=== PATIENT | male | born 1950 | race Caucasian/White ===

== ENCOUNTER 2016-12-10 17:38 | Inpatient (IN) | payer MEDICARE, OTHER ==
[2016-12-10] VITALS (8 sets, daily range): BP systolic 107–133; BP diastolic 59–99; PULSE 68–160; RESP 15–27; O2SAT 92–98
[~2016-12-10] VITALS: Ht 175.3 cm; Wt 93.8 kg
[~2016-12-10 17:38] MED LIST: LOSA25TA21 PO; METO-272 PO; [UNRECOGNIZED DRUG - CODE] SQ
[2016-12-10 18:10] LABS: BASOPHILS % (AUTO) 0.2 % (0-3); EOSINOPHILS % (AUTO) 1.1 % (0-5); Mean Corpuscular Hemoglobin 28.6 pg (27.0-35.0); Mean Corpuscular Volume 88.6 fL (81-100); NEUTROPHILS % (AUTO) 65.2 % (40-74); Platelet Count 287 bil/L (150-400)
--- NOTE | 2016-12-10 18:12 | DRSVH ---
PROCEDURE: X-RAY CHEST ONE VIEW, PORTABLE ([id number]) INDICATIONS: dysrhythmia TECHNIQUE: One view of the chest was acquired. COMPARISON: [facility], CR, XR CHEST 1VW (PORTABLE), 05/06/2016, 15:47. FINDINGS: Surgical changes and devices: Left chest wall portacatheter, tip of which is in the right atrium. Lungs and pleura: No pleural effusions or pneumothorax. No change in right basilar nodular density. Lungs are otherwise clear. Mediastinum: Mediastinal contours appear normal. Heart size is normal. Bones and chest wall: No suspicious bony lesions. Overlying soft tissues appear unremarkable. IMPRESSION: 1. No change in right basilar nodular density. 2. No acute process. Dictated by: Lakesha Jain M.D. on 12/10/2016 at 18:09 Approved by: Lakesha Jain M.D. on 12/10/2016 at 18:10
--- NOTE | 2016-12-10 18:16 | ED.REPORT ---
HPI-Chest Pain 40 and Over Date of Service Dec 10, 2016 ED Provider: Dr. He Campos D.O. A 66 year old male with a medical history including metastatic squamous cell carcinoma of the head and neck, PTSD, PE, DVT, and atrial fibrillation s/p cardioversion on Xarelto presents to the ED accompanied by his with tachycardia (160bpm) onset today. Associated symptoms include dizziness, weakness, and lightheadedness. The patient denies fever, vomiting, diarrhea, loss of appetite, or other symptoms. He has had similar symptoms in the past associated with atrial fibrillation and bilateral PE. The patient spoke with his oncologist today who referred him to the ED. Nursing Notes Stated Complaint: POSSIBLE AFIB- SENT BY SUAREZ Chief Complaint: Dysrhythmia/Cardiac Nursing Notes Reviewed: Yes Allergies: Coded Allergies: No Known Allergies (Unverified , 05/15/16) Scheduled Gabapentin (Gabapentin) 300 Mg Capsule 300 MG PO TID Losartan Potassium (Losartan Potassium) 25 Mg Tablet 12.5 MG PO HS Metoprolol Succinate ER (Metoprolol Succinate ER) 50 Mg Tab.er.24h 50 MG PO DAILY Pembrolizumab (Keytruda) 100 Mg/4 Ml (25 Mg/Ml) Vial 200 MG IV [id number] Rivaroxaban (Xarelto) 20 Mg Tablet 20 MG PO QPM at 1800 General Time Seen by MD: 18:16 Chief Complaint Other (Tachycardia) Hx Obtained From: Patient Arrived By: Walk-in Sudden in Onset?: Yes Onset Occurred: Onset unknown (Today) Symptom Duration: Since onset Severity: Current: No pain currently Severity: Maximum: No pain Associated with: Reports: Lightheaded, Weakness, Denies: Fever, Vomiting Pertinent Negative: Relieved by nothing Context Related History: Reports: Arrhythmia, Pulmonary embolism Similar Sx Previous: Yes Past Medical History Past Medical History Pressure ulcer Anxiety PTSD Depression Metastatic squamous cell carcinoma of the head and neck PE DVT Atrial fibrillation s/p cardioversion Hx Left ankle skin cancer Varicose vein Agent [place] exposure Hemorrhoids Past Surgical History Hemorrhoidectomy Varicose vein stripping Tongue BX's EXC skin cancer Lung biopsy Smoking History Light Tobacco Smoker Social History Alcohol Use: Denies alcohol use Drug Use: Denies drug use Ambulatory Status Independent Review of Systems Review of Systems Note: + Tachycardia (160bpm) - Loss of appetite Constitutional: Denies: Fever Respiratory: Denies: Non-productive cough, Shortness of breath GI: Denies: Diarrhea, Vomiting Neurologic: Reports: Dizziness, Lightheaded, Weakness Complete sys rev & neg: except as marked. Physical Exam Physical Exam Notes: Initial Vital Signs Vital Signs (First) Date Time Temp Pulse Resp B/P Pulse Ox O2 Delivery O2 Flow Rate FiO2 12/10/16 17:41 36.3 160 16 110/77 96 12/10/16 18:41 Nasal Cannula 2 Initial VS: Reviewed Head / Eyes: Atraumatic, Normocephalic ENT: Conjunctiva normal, No scleral icterus Neck: Supple, Full range of motion Skin: Warm, Dry, No cyanosis Neurologic: Alert, Oriented, Nonfocal Psychiatric: Mood/affect normal, Behavior normal, Normal thought content General/Constitutional: Awake, Alert, No acute distress Respiratory / Chest: Breath sounds NL, Breath sounds = bilat, No respiratory distress Cardiovascular: Regular rhythm Heart Rate / Rhythm: Positive: Tachycardia Thready pulses Interpretation & Diagnostics Lab Results Interpretation Result Diagram: 12/10/16 1800 12/10/16 1800 Test 12/10/16 18:00 12/10/16 19:37 White Blood Count 6.1th/mm3 (3.8-10.1) Red Blood Count 4.65mil/mm3 (4.40-5.80) Hemoglobin 13.3g/dL (13.8-17.2) Hematocrit 41.2% (41.0-50.0) Mean Corpuscular Volume 88.6fL (81-100) Mean Corpuscular Hemoglobin 28.6pg (27.0-35.0) Mean Corpuscular Hemoglobin Concent 32.3% (32.0-37.0) Red Cell Distribution Width 12.8% (12.3-15.4) Platelet Count 287bil/L (150-400) Neutrophils (%) (Auto) 65.2% (40-74) Lymphocytes (%) (Auto) 22.3% (14-46) Monocytes (%) (Auto) 11.0% (4-12) Eosinophils (%) (Auto) 1.1% (0-5) Basophils (%) (Auto) 0.2% (0-3) Prothrombin Time 10.7sec (8.1-12.5) Prothromb Time International Ratio 1.00ratio Activated Partial Thromboplast Time 31.3sec (22.8-33.0) D-Dimer 0.5mg/L (<0.50) Sodium Level 137mEq/L (134-144) Potassium Level 4.1mEq/L (3.5-5.2) Chloride Level 100mEq/L (97-108) Carbon Dioxide Level 22mmol/L (18-29) Blood Urea Nitrogen 19mg/dL (8-27) Creatinine 0.89mg/dL (0.76-1.27) Estimat Glomerular Filtration Rate 91mL/min (>59) Glucose Level 193mg/dL (60-99) Calcium Level 9.3mg/dL (8.5-10.1) Magnesium Level 2.1mg/dL (1.6-2.6) Total Bilirubin 0.4mg/dL (0.0-1.2) Aspartate Amino Transf (AST/SGOT) 17U/L (0-50) Alanine Aminotransferase (ALT/SGPT) 20U/L (0-44) Alkaline Phosphatase 108U/L (25-160) Troponin T < 0.010ug/L (0.0-0.011) Total Protein 6.8g/dL (6.4-8.4) Albumin 3.8g/dL (3.4-5.0) Hold [place] Top Tube Received (Received) Hold Urine Received (Received) ECG Interpretation ECG Interpretation: Atrial fibrillation/flutter rate 160 Nonspecific IVCD Time: 17:54 Interpreted by: ED physician X-Ray Chest Interpretation Chest Xray Interpretation: IMPRESSION: 1. No change in right basilar nodular density. 2. No acute process. Dictated by: Lakesha Jain M.D. on 12/10/2016 at 18:09 View: Portable, 1 view Interpretation / Wet Read by: Interpret - Radiologist CT Chest Interpretation IMPRESSION: 1. No pulmonary embolus. 2. New left hilar and AP window adenopathy, indicating metastatic disease, causing mild extrinsic narrowing of the left main pulmonary artery. 3. No change in skeletal metastases. 4. No change in small hepatic hypodensities consistent with metastatic disease. 5. No change in right basilar rounded atelectasis. 6. Increased left apical pulmonary nodule, consistent with metastatic disease. Dictated by: Lakesha Jain M.D. on 12/10/2016 at 19:53 Study type: CT pulm angiogram Interpretation / Wet Read by: Interpret - Radiologist Re-Eval/Medical Decision Med Decision/Clinical Course 66-year-old male presents with a rapid pulse. Evidently felt dizzy and lightheaded since this morning. His oncologist referred him in because last time he looked like this he had r ulmonary emboli leading atrial flutter flutter. He was found to be in atrial fibrillation rapid rate at 160. His blood pressure was a bit soft. He was treated IV fluids and eventually Cardizem drip. I did not sedate cardiovert him to the fact that he just a large meal. He tolerated Cardizem well. Pulmonary emboli was ruled out. Labs look good. He will be admitted to PCU for continue monitoring. Source of Hx: Old records Time of Eval: 19:37 Patient Status: Condition improved Re-Evaluation/Progress Note: The patient's heart rate has reduced to 97bpm after drip. He is still in atrial flutter and his systolic BP is 110. Time of Eval: 20:17 Patient Status: Condition improved Re-Evaluation/Progress Note: Discussed with patient and his x-ray, CT, and lab results, diagnosis, and plan for admit. Patient agrees with plan for care and all questions were addressed. Consultation : Referral / Consult Name: Julio Cesar Gómez MD Consulted With: Hospitalist Call Returned at: 20:11 Adult Secondary Education Instructor: Agrees with eval, Agrees with plan, Accepts admit Counseled Regarding: Diagnosis, Lab results, Need for admission Discharge & Departure Primary Impression: Atrial fibrillation with RVR Disposition: ADMITTED TO HOSPITAL Discharge Condition All VS Reviewed: Yes Condition: Improved Referrals: No Valenzuela MD (PCP) Aas Shah MD Crit Care Except Billable Proc Time Spent: 30-74 minutes Services Performed: Patient management by me, Time spent at bedside, Reviewing test results, Reviewing imaging, Discussing patient care, Documentation in record, Time with fam/surrogate Scribe Attestation Portions of this note were transcribed by Toña Adrian. I, Dr. Campos, personally performed the history, physical exam, and medical decision-making; I reviewed and confirmed the accuracy of the information in the transcribed note. Signed by: Jeremy Renee, 12/10/2016, 22:30 copies to: No Valenzuela MD; Asa Shah MD, Todd P DO Dec 10, 2016 18:16 TOÑA ADRIAN Dec 10, 2016 18:25
[2016-12-10] MEDS ORDERED: GABA-502 PO (18:18)
[2016-12-10] MEDS ORDERED: RIVA20TA PO (18:18)
[2016-12-10] MEDS ORDERED: 0.9% Sodium Chloride 1,000 ML IV ONE (18:20)
[2016-12-10] MEDS ORDERED: Diltiazem 5 mg/mL 5 mL Inj IVPUSH PRN (18:25)
[2016-12-10 18:39] LABS: D-DIMER 0.5 mg/L (<0.50)
[2016-12-10 18:42] LABS: Magnesium 2.1 mg/dL (1.6-2.6)
[2016-12-10 18:44] LABS: TROPONIN T < 0.010 ug/L (0.0-0.011)
[2016-12-10] MEDS ORDERED: Diltiazem 5 mg/mL 5 mL Inj IVPUSH ONE (18:55)
[2016-12-10] MEDS ORDERED: PEMB100V IV (19:52)
[2016-12-10] MEDS: Diltiazem Inj 125 MG in 0.9% Sodium Chloride 100 ML, Pharmacy To Mix 1 EA IV SCH (19:53)
--- NOTE | 2016-12-10 20:00 | DRSVH ---
PROCEDURE: CT ANGIO CHEST PULMONARY EMBOLISM ([id number]) INDICATIONS: tachycardia, cancer, hx of PE TECHNIQUE: After the administration of intravenous contrast, 2 mm thick sections acquired from the pulmonary api gail to the posterior costophrenic angles. 3-dimensional maximum intensity projection (MIP) coronal a nd sagittal reformats were then acquired through the thorax. For radiation dose reduction, the follo wing was used: automated exposure control, adjustment of mA and/or kV according to patient size. COMPARISON: [facility], CT, CT NECK CHEST ABD PELVIS W CON, 10/21/2016, 11:46. FINDINGS: Image quality: Excellent. Pulmonary arteries: There is mild extrinsic narrowing of the left main pulmonary artery secondary to left hilar adenopathy. No filling defects are seen within the pulmonary arteries to indicate pulmonar y emboli. Lungs and pleura: Increased, 10 mm diameter left apical nodule. No change in rounded atelectasis at t he right anterolateral and posterior lung base. No pleural effusions or pneumothorax. Central and pe ripheral airways are patent. Mediastinum: Heart size is normal, without pericardial effusion. There is new, 27 mm short axis AP w indow adenopathy. There is new, 17 mm short axis left hilar adenopathy. There is mild associated extr insic narrowing of the left main pulmonary artery secondary to left hilar adenopathy. Calcified right hilar lymph nodes are present. Thoracic aorta is normal in caliber and enhancement. Esophagus is no rmal in caliber, without hiatal hernia. Bones and chest wall: No change in scattered sclerotic lesions within the mid thoracic spine. Ribs a nd thoracic spine appear intact throughout. Thyroid gland is within normal limits. No axillary or s upraclavicular adenopathy. Abdomen: Visualized portions of the upper abdomen demonstrate no change in small hepatic hypodensiti es. IMPRESSION: 1. No pulmonary embolus. 2. New left hilar and AP window adenopathy, indicating metastatic disease, causing mild extrinsic courtney rowing of the left main pulmonary artery. 3. No change in skeletal metastases. 4. No change in small hepatic hypodensities consistent with metastatic disease. 5. No change in right basilar rounded atelectasis. 6. Increased left apical pulmonary nodule, consistent with metastatic disease. Dictated by: Lakesha Jain M.D. on 12/10/2016 at 19:53 Approved by: Lakesha Jain M.D. on 12/10/2016 at 19:59
[2016-12-10] MEDS ORDERED: Ondansetron 2 mg/mL 2 mL Inj IVPUSH PRN (20:15)
[2016-12-10] MEDS ORDERED: Alum-Mag Hydrox-Simeth 30 mL Suspension PO PRN (20:15)
[2016-12-10] MEDS ORDERED: Polyethylene Glycol (PEG) 17 Gm Powder PO PRN (20:15)
--- NOTE | 2016-12-10 21:22 | PCM.HPMED ---
Subjective Date of Service Dec 10, 2016 Primary Provider: Admitting Physician: Julio Cesar Gómez MD Primary Care Physician: No Valenzuela MD Attending Physician: Julio Cesar Gómez MD Chief Complaint: Weakness Tachycardia History of Present Illness: 66-year-old gentleman with metastatic squamous cell carcinoma previous history of bilateral pulmonary embolism atrial flutter/fibrillation, presented to [facility] emergency department 12/10/2016 on the instructions of Dr. Pemberton, oncologist. Patient reports having profound weakness today and broke into a cold sweat this morning and was not able to eat anything this afternoon. States he was lightheaded with standing and his heart rate had gone from 75 to 152. Prehospital he denies any chest pain, lower extremity edema, orthopnea, stated he has a slight amount of shortness of breath. Patient recently had a viral infection, and was placed on gabapentin 300 mg 3 times a day by Dr. Pemberton for cancer pain. He is currently on Xarelto 20mg Qpm. Dr. Kim asked the patient to speak with his oncologist, who subsequently advised him to report to the emergency department. In May 2016 he was found to be in atrial fib/atrial flutter with a diagnosis of bilateral pulmonary emboli. At that time he was hospitalized and underwent electrocardioversion, and since then has been on blood thinners. In the emergency department he is found to have a heart rate in the 160s, chest angiography in the emergency department was negative for pulmonary embolism, but was positive for new adenopathy in the left hilar and AP window. No change in his skeletal metastatic disease, increased left apical pulmonary nodule consistent with metastatic disease. EKG showed atrial fibrillation/flutter with a rate of 160, "nonspecific IVCD" CBC was essentially benign except for 13.3 hemoglobin CMP is only positive for elevated glucose at 193, troponin was negative, magnesium was 2.1. Coag studies were normal, INR 1.0 d-dimer 0.5 He was placed on diltiazem drip where his heart rate improved, and blood pressure remained stable in the 110. States he is feeling well, is no longer lightheaded, dizzy, or weak, no chest pain, no shortness of breath, no abdominal pain, denies any melena or hematochezia, he is unchanged weakness in his right arm which is not new and has been evaluated and found to be local compression of nerve root by metastatic disease. No dysuria, urgency, or difficulty urinating, no constipation, no diarrhea, no rashes, no bruising. Review of Systems: Comprehensive ROS negative unless mentioned in history of present illness Allergies Coded Allergies: No Known Allergies (Unverified , 05/15/16) Home Medications Gabapentin (Gabapentin) 300 Mg Capsule 300 MG PO TID Losartan Potassium (Losartan Potassium) 25 Mg Tablet 12.5 MG PO HS Metoprolol Succinate ER (Metoprolol Succinate ER) 50 Mg Tab.er.24h 50 MG PO DAILY Pembrolizumab (Keytruda) 100 Mg/4 Ml (25 Mg/Ml) Vial 200 MG IV u0lbher Rivaroxaban (Xarelto) 20 Mg Tablet 20 MG PO QPM PMH Pressure ulcer Anxiety PTSD Depression Metastatic squamous cell carcinoma of the head and neck (HPV) PE DVT Atrial fibrillation s/p cardioversion Hx Left ankle skin cancer Varicose vein Agent [place] exposure Hemorrhoids Surgical History Hemorrhoidectomy Varicose vein stripping Tongue BX's EXC skin cancer Lung biopsy Port-A-Cath placement Family History Mother had several cerebrovascular accidents, dementia, lived to be 91 Father several CVA accidents, skin cancer, lived a day short of 90 years old. Social History Occupation: retired Hx Alcohol Use: No Hx Substance Use: No Smoking Status: Light Tobacco Smoker (reportedly one cigarette a day down from 2-1/2 packs a day) Living Arrangement: with Family Exam Vital Signs Vital Sign - Last Date Time Temp Pulse Resp B/P Pulse Ox O2 Delivery O2 Flow Rate FiO2 12/10/16 20:27 105 18 116/65 95 Room Air 12/10/16 19:52 36.8 12/10/16 19:00 2 Exam General: Laying in bed, no apparent distress. Alert and oriented HEENT: Normocephalic, atraumatic, EOMI grossly, mucous membranes moist Cardiovascular: Irregularly irregular no clicks murmurs rubs, peripheral pulses 2/4 equal bilaterally Pulmonary: Clear to auscultation bilaterally, no W/R/R. minimally decreased breath sounds right lower base compared to left Abdominal: Soft to palpation, bowel sounds present 4, no hepatosplenomegaly. Negative rebound. Extremities: No edema appreciated. No tenderness, asymmetry. Neuro: Neurologically grossly intact, mildly decreased strength in right upper extremity, unable to abduct past 90 MSK: Gait is normal, able to move extremities on their own volition. Lab and Diagnostics Result Diagram: 12/10/16 1800 12/10/16 1800 X-Rays, CTs and MRIs CT anterior chest pulmonary embolism December 10 2016 IMPRESSION: 1. No pulmonary embolus. 2. New left hilar and AP window adenopathy, indicating metastatic disease, causing mild extrinsic narrowing of the left main pulmonary artery. 3. No change in skeletal metastases. 4. No change in small hepatic hypodensities consistent with metastatic disease. 5. No change in right basilar rounded atelectasis. 6. Increased left apical pulmonary nodule, consistent with metastatic disease. Dictated by: Lakesha Jain M.D. on 12/10/2016 at 19:53 Chest x-ray 12/10/2014 IMPRESSION: 1. No change in right basilar nodular density. 2. No acute process. Dictated by: Lakesha Jain M.D. on 12/10/2016 at 18:09 12-lead ECG Please see history of present illness Assessment & Plan 66-year-old gentleman with history of atrial fibrillation/flutter following bilateral pulmonary embolisms, currently being treated with chemotherapy for metastatic squamous cell carcinoma, residual tumor burden, presented with weakness and tachycardia found to be experiencing recurrence of atrial fibrillation/flutter, without laminaria emboli, appropriately anticoagulated, and currently responsive to diltiazem drip. #1 atrial fibrillation with RVR, present on admission, improving -Heart rate 160, responsive to diltiazem drip, treated with Xarelto, and metoprolol in the outpatient setting. -Possible causes for recurrence include dehydration, recent illness, or sequelae of metastatic disease -Continue with home Xarelto -Diltiazem gtt. for rate control, monitor blood pressure -Cardiology consult, patient electrocardioversion candidate? -Troponin negative, magnesium stable -Nothing by mouth after midnight -Dr. Kim mentioned in his outpatient record he was suspicious for dehydration , IV fluids as needed. Hold losartan and metoprolol while receiving diltiazem drip Place on telemetry #2 metastatic squamous cell carcinoma, present on admission, stable -Chest angiogram CT did not show any substantial change in metastatic disease from previous evaluation. -Dr. Pemberton is aware of patient's ER visit, he will be consulted /notified of inpatient status. #3 chronic obesity, present on admission, stable -Patient's BMI is 31.1 -Nutrition consult while hospitalized #4 tobacco use disorder, present on admission, improving. Congratulated patient on being able to cut down his cigarette use. -Nicotine patches when necessary while hospitalized. VTE prophylaxis with Xarelto Pain management, gabapentin 300 mg 3 times a day GI prophylaxis not indicated. Pain Evaluation: Adequate Pain Control VTE Prophylaxis Indicated: Meets Criteria for Anticoag Therapy VTE Prophylaxis: Other (Xarelto) Resuscitation Status: CPR: Attempt Resuscitation Attending Statement The patient was seen and examined together with Dr. John on 12/10 and I agree with the history, exam and plan as outlined in the note above. Jadon Wolfe DO Dec 10, 2016 21:22 Julio Cesar Gómez MD Dec 10, 2016 23:40
--- NOTE | 2016-12-10 22:35 | NUR ---
Diltiazem gtt decreased to 5ml/h as HR has been in the 70's. Will CTM.
[2016-12-11] VITALS (8 sets, daily range): BP systolic 103–125; BP diastolic 68–84; PULSE 62–90; RESP 16–20; O2SAT 94–99
--- NOTE | 2016-12-11 00:20 | NUR ---
Dilt gtt Rate decreased to 2.5ml/hour. HR has been in the low 80's.Will CTM.
[2016-12-11 03:17] LABS: BASOPHILS % (AUTO) 0.2 % (0-3); EOSINOPHILS % (AUTO) 3.2 % (0-5); MONOCYTES % (AUTO) 12.6 % (4-12); Mean Corpuscular Hemoglobin 28.3 pg (27.0-35.0); Mean Corpuscular Volume 89.6 fL (81-100); NEUTROPHILS % (AUTO) 54.9 % (40-74); Platelet Count 267 bil/L (150-400)
--- NOTE | 2016-12-11 06:33 | NUR ---
NOC PT dilt gtt has been off for few hours now and his HR is in NSR with PAC's with a rate of 70-80's. PT is on 2l NC t/o the night as he has noteable sleep apnea and was desatting into to 80's ORA. Voids per urinal. Has been NPO since MN. PT has some R neck pain from enlarged lymph node that is swollen and impinges on nerve in his neck. Pain well managed with scheduled gabapentin. Pt aware of the plan. WIll CTM.
[2016-12-11] MEDS: 0.9% Sodium Chloride 250 ML IV SCH ×2 (11:37→20:30)
[2016-12-11] MEDS ORDERED: Sodium Chloride LOK Flush 10 mL Syringe IVFLUSH PRN ×2 (11:40)
[2016-12-11] MEDS ORDERED: HepLOK Flush 100 unit/mL 5 mL Inj IVFLUSH PRN (11:40)
--- NOTE | 2016-12-11 16:22 | NUR ---
Activity Cardiac: Pt denies CP, Tele: SR 70s-80s. HR is Irregular. Walked two brisk laps in [place] with pt. HR up to 108, remained SR, BP upon returning 134/82. Pt reports mild diaphoresis, but denies CP, dizziness or SOB. Resp: Pt denies SOB, SPO2 mid 90s on RA. GI/: Pt denies n/v/d Neuro: RUE has limited ROM due to enlarged lymph node on R side of neck that is swollen and impinging on nerve. YAMEL Gabapentin is offering adequate pain control.
--- NOTE | 2016-12-11 17:04 | NUR ---
Social Work: Initial Assessment and Readiness for Discharge D: Per EMR review, pt is a 66 year old male admitted for AFIB with RVR, new onset paroxysmal. Pt is Medicare with [employer] Supplement with no LTC insurance; pt is 30 percent [facility]. PCP is No Valenzuela MD. NOK is Lynne Ceron, , . Advanced directives completed and current. Readmit score not entered at this time. BIZTALK ADMINISTRATOR met with pt and spouse at bedside. Sw role explained and contact information provided. See initial assessment. Pt lives in [place] with his spouse. Pt is I at baseline and uses no DME. Pt has been ambulating hall I. Pt has never had HH or skilled rehab. Pt and spouse have no concerns about discharge home. Pt's spouse will transport. A: Pt who is I at baseline. P: Anticipate pt to discharge home via POV once medically stable; BIZTALK ADMINISTRATOR to continue to follow. WALKER Knight Addendum: 12/11/16 at 1711 by СЕРГЕЙ BARRERA Amended: Links added.
[2016-12-11] MEDS: Diltiazem Inj 125 MG in 0.9% Sodium Chloride 100 ML, Pharmacy To Mix 1 EA IV SCH (17:14)
--- NOTE | 2016-12-11 18:33 | PCM.PNMED ---
Subjective Date of Service Dec 11, 2016 Subjective overnight: Patient admitted with atrial fibrillation with rapid ventricular response and started on diltiazem gtt, titrated off overnight after rhythm converted with normal sinus with a rate of 70-80's with frequent premature atrial contractions. Patient has notable sleep apnea and was oxygen desaturation into to 80's. today: Patient states that his heart rate has felt normal all day denying any palpitations. He states that this had happened twice before and he was shocked prior to get his rhythm converted. Exam Vital Signs Vital Sign - Last Date Time Temp Pulse Resp B/P Pulse Ox O2 Delivery O2 Flow Rate FiO2 12/11/16 06:14 70 12/11/16 03:37 37.0 16 120/68 96 Room Air 12/10/16 19:00 2 Intake and Output 12/10/16 12/10/16 12/11/16 Cumulative From/Thru 15:00 23:00 07:00 12/10/16 17:41 - 12/11/16 06:32 Intake Total 1000 ml 314 ml 1314 ml Output Total 700 ml 700 ml Balance 1000 ml -386 ml 614 ml Intake Oral 100 ml 100 ml IV Total 1000 ml 214 ml 1214 ml Output Urine Total 700 ml 700 ml # Bowel Movements 0 0 Exam General: Laying in bed, no apparent distress. Alert and oriented x3 HEENT: Normocephalic, atraumatic, PERRLA, EOMI grossly intact, mucous membranes moist Cardiovascular: Irregularly irregular no clicks murmurs rubs, peripheral pulses 2/4 equal bilaterally at radial and dorsalis pedis Pulmonary: Clear to auscultation bilaterally, no W/R/R. minimally decreased breath sounds right lower base compared to left Abdominal: Soft to palpation, bowel sounds present 4, no hepatosplenomegaly. Negative rebound. Extremities: No edema appreciated. No tenderness, asymmetry. Neuro: Neurologically grossly intact, mildly decreased strength in right upper extremity, unable to abduct past 90 MSK: Gait is normal, able to move extremities on their own volition. Psych: Normal mood and affect : no cam in place Lab and Diagnostics Result Diagram: 12/11/1630912/11/16309 X-Rays, CTs and MRIs CT anterior chest pulmonary embolism December 10 2016 IMPRESSION: 1. No pulmonary embolus. 2. New left hilar and AP window adenopathy, indicating metastatic disease, causing mild extrinsic narrowing of the left main pulmonary artery. 3. No change in skeletal metastases. 4. No change in small hepatic hypodensities consistent with metastatic disease. 5. No change in right basilar rounded atelectasis. 6. Increased left apical pulmonary nodule, consistent with metastatic disease. Dictated by: Lakesha Jain M.D. on 12/10/2016 at 19:53 Chest x-ray 12/10/2014 IMPRESSION: 1. No change in right basilar nodular density. 2. No acute process. Dictated by: Lakesha Jain M.D. on 12/10/2016 at 18:09 Assessment & Plan 66-year-old gentleman with history of atrial fibrillation/flutter following bilateral pulmonary embolisms, currently being treated with chemotherapy for metastatic squamous cell carcinoma, residual tumor burden, presented with weakness and tachycardia found to be experiencing recurrence of atrial fibrillation/flutter, without laminaria emboli, appropriately anticoagulated, and currently responsive to diltiazem drip. Hospital Day 1 #1 atrial fibrillation with RVR, present on admission, resolved -Heart rate 160, responsive to diltiazem drip, treated with Xarelto, and metoprolol in the outpatient setting. -Possible causes for recurrence include dehydration, recent illness, or sequelae of metastatic disease -Continue with home Xarelto -Diltiazem gtt. for rate control discontinued overnight -Cardiology consulted by admitting physician and patient decidedly not electrocardioversion candidate -Troponin negative, magnesium stable - restart losartan and metoprolol #2 metastatic squamous cell carcinoma, present on admission, stable -Chest angiogram CT did not show any substantial change in metastatic disease from previous evaluation. -Dr. Pemberton is aware of patient's ER visit, and notified of inpatient status. #3 chronic obesity, present on admission, stable -Patient's BMI is 31.1 -Nutrition consult while hospitalized #4 tobacco use disorder, present on admission, improving. -Nicotine patches when necessary while hospitalized. #5 obstructive sleep apnea, present on admission, stable - oxygen overnight VTE prophylaxis with Xarelto Pain management, gabapentin 300 mg 3 times a day GI prophylaxis not indicated. Disposition: discharge home tomorrow pending any further unforeseen complicating issues Pain Evaluation: Adequate Pain Control GI Prophylaxis: Not indicated VTE Prophylaxis: Other (Xarelto) Resuscitation Status: CPR: Attempt Resuscitation Attending Statement The patient was seen and examined together with Dr. Middleton on 12/11/2016 and I agree with the history, exam and plan as outlined in the note above. . Antonio Middleton DO Dec 11, 2016 07:50 Edwin Ward MD Dec 13, 2016 16:21
[2016-12-11] MEDS: MeTOProlol XL 50 mg ER24 Tablet PO SCH (20:29)
[2016-12-12 00:18] VITALS: BP 122/78; PULSE 86; RESP 20; O2SAT 95
--- NOTE | 2016-12-12 02:38 | NUR ---
Transferred Pt transferred to room 3005 with all belongings, charts and medications. Patient had questions and concern about moving this time of the day. Md and charge nurse has spoken about the need for transfer during this time of day. Pt denies any chest pain/discomfort. Telemetry SR 80s. Pt ambulates in room without any problems.
[2016-12-12 03:40] LABS: Mean Corpuscular Hemoglobin 28.4 pg (27.0-35.0); Mean Corpuscular Volume 88.5 fL (81-100)
[2016-12-12 04:27] LABS: Phosphorus 4.4 mg/dL (2.5-4.9)
[2016-12-12 04:28] LABS: Creatine Kinase 42 U/L (21-232)
[2016-12-12 05:33] VITALS: PULSE 74
--- NOTE | 2016-12-12 06:27 | NUR ---
Received Received from [facility] to 3005. Ambulatory on arrival. RA w/o SOB. Tele SR w/o CP. Left chest portacath with NS @ 10ml/hr. Oriented to new room including call light use. 1:1 provided to address patients dissatisfaction with changing rooms. All questions and concerns addressed at this time per patient.
[2016-12-12 08:00] VITALS: PULSE 105
[2016-12-12] MEDS: MeTOProlol XL 50 mg ER24 Tablet PO SCH (08:18)
[2016-12-12 09:21] VITALS: BP 112/68; PULSE 72; RESP 20; O2SAT 93
[2016-12-12 11:10] VITALS: PULSE 72
[2016-12-12 14:35] VITALS: BP 115/72; PULSE 71; RESP 19; O2SAT 94
--- NOTE | 2016-12-12 16:00 | PCM.CHPMED ---
Subjective Date of Service: Dec 12, 2016 Provider requesting consult: Jazlyn Hope DO Primary Physician: Admitting Physician: Julio Cesar Gómez MD Primary Care Physician: No Valenzuela MD Attending Physician: Julio Cesar Gómez MD Chief Complaint: Chief Complaint: Initial endocrinology consultation at the request of Dr. 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 History of Present Illness: The patient reports that he was in reasonable baseline health until 3 days prior to admission. At that time his noticed a bit of exertional dyspnea. The patient felt well until the morning of admission. He awakened feeling weak and nearly unable to ambulate to the bathroom. He checked his fit bit heart rate monitor and noted a heart rate of 150. He has a prior history of atrial fibrillation and hence called his executive advisor and was referred to the emergency department. He had been otherwise eating and drinking normally. On admission he was noted to be in atrial fibrillation with rapid ventricular response, which is a recurrent problem for him. Thyroid function tests were sent and he was noted to be hyperthyroid. Systems he has had no recent sweats or heat intolerance. He has lost weight which she attributes to recently discontinuing high-dose glucocorticoid therapy , approximately 10-15 pounds in the past 2 months. He has no ocular symptoms. He he did not experience palpitation. Appetite has been normal. GI function normal. No abdominal pain or diarrhea or hyperdense defecation. No tremors. No sleep disturbance or neuropsychiatric symptoms. He has no personal history or family history of thyroid disease. 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 This is metastatic with mediastinal adenopathy. He received carboplatin and paclitaxel. Recently started Pembrolimumab in late 2016. He had a prior episode of atrial fibrillation related to pulmonary embolism in 2016, which seems to be part of his cancer. Review of Systems: Review of systems with thyroid findings noted above. PMH Past Medical History # Metastatic head and neck cancer, squamous cell carcinoma, HPV positive # History of pulmonary embolism on dabigatran\ # History of atrial fibrillation # Chronic pain # Anxiety, depression, PTSD # Tobacco use disorder # Obesity with DENISE Allergies: Coded Allergies: No Known Allergies (Unverified , 05/15/16) Family History Family History Father CVA and skin cancer, mother CVA. One sister. No thyroid disease. Social History Occupation: retired Hx Alcohol Use: NoHx Substance Use: No Smoking Status: Light Tobacco Smoker (reportedly one cigarette a day down from 2-1/2 packs a day) Living Arrangement: with Family Exam Vital Signs Vital Sign - Last Date Time Temp Pulse Resp B/P Pulse Ox O2 Delivery O2 Flow Rate FiO2 12/12/16 11:10 72 12/12/16 09:21 36.7 20 112/68 93 Room Air 12/10/16 19:00 2 Intake and Output 12/11/16 12/11/16 12/12/16 Cumulative From/Thru 15:00 23:00 07:00 12/10/16 17:41 - 12/12/16 02:24 Intake Total 440 ml 88 ml 1842 ml Output Total 700 ml 1400 ml Balance -260 ml 88 ml 442 ml Intake Oral 440 ml 540 ml IV Total 88 ml 1302 ml Output Urine Total 700 ml 1400 ml # Bowel Movements 0 General: Generally healthy-appearing man in no acute distress HEENT: sclerae anicteric, oral mucosa moist, no stare, no proptosis Neck: no JVD, soft tissue enlargement and induration on right side of neck; thyroid is nonpalpable Chest: clear to auscultation Cardiac: S1S2, no murmur Abdomen: BS normal, non-tender Extremities: No edema; skin is dry and coarse, without diaphoresis Neuro: A&O, cranial nerves symmetric, mild slightly coarse tremor, reflexes normal not hyperreactive Lab and Diagnostics Labs Free T4 3 0.34, TSH less than 0.005 Result Diagram: 12/12/16 0250 12/12/16 0250 Assessment & Plan Assessment 66-year-old male with recent initiation of checkpoint inhibitor therapy for 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 Other than tachycardia, and exertional dyspnea, he is relatively asymptomatic. He has had recent CT scans with contrast, which reveal no significant nodular goiter. His personal family history does not reveal significant autoimmune disease or thyroid disorders. Differential diagnosis is: PD L1 inhibitor induced autoimmunity causing autoimmune hyperthyroidism, less likely iodine-induced thyroiditis due to recent contrasted CT scans, less likely de jessica onset of idiopathic Graves' disease. This does not seem to be toxic nodular goiter. Recommendations: - Check thyroid ultrasound to rule out nodular goiter (which would increase the probability of iodine-induced hyperthyroidism, Jod-Basedow phenomenon). In the absence of nodular thyroid disease I would discard this diagnosis. - Check thyroid stimulating immunoglobulin, as well as anti-TPO antibodies ( this will take several days to return) - Initiate antithyroid medication methimazole 10 mg twice a day which he should take for approximately 2-3 weeks, then likely reduce to 10 mg daily - Recommend to increase beta theo to fully effective dose. - I will schedule follow-up in Endocrinology clinic next . - We will need guidance from Dr. Shah regarding the planned duration of his checkpoint inhibitor therapy. At present I would expect to continue methimazole throughout this time, could consider discontinuation several months after immunotherapy has stopped. Radioiodine may be considered if he does not return to euthyroidism after stopping pembrolizumab. Thank you for this interesting consult. Please contact me with any questions at [phone]. Problems: Pain Evaluation: Adequate Pain Control GI Prophylaxis: Not indicated VTE Prophylaxis Indicated: Meets Criteria for Anticoag Therapy VTE Prophylaxis: Other (Xarelto) VTE Mechanical Devices: Intermittant Pneumatic CD Resuscitation Status: CPR: Attempt Resuscitation Time spent 60 minutes copies to: Asa Shah MD, Jeffrey W MD Dec 12, 2016 13:56
--- NOTE | 2016-12-12 16:25 | DRSVH ---
PROCEDURE: US THYROID SONOGRAM INDICATIONS: thyrotoxicosis, atrial fibrillation TECHNIQUE: Real-time scanning was performed of the thyroid gland, with image documentation. COMPARISON: [facility], CT, CT NECK CHEST ABD PELVIS W CON, 10/21/2016, 11:46. FINDINGS: Right: Thyroid lobe measures 3.6 x 1.7 x 1.6 cm and there is a 1.4 mm colloid cyst within the superio r pole. Left: Thyroid lobe measures 3.6 x 2.8 x 1.9 cm and there is a 1.9 cm colloid cyst within the mid to u pper pole. Isthmus: 2.6 mm thick. Lymph nodes: No regional lymphadenopathy. Complex, vascular mass seen within the right lateral neck superior to the thyroid as was seen on prio r CT scan measured 3.2 x 2.2 x 5.5 cm. IMPRESSION: 1. Bilateral colloid cysts otherwise normal thyroid. 2. Complex solid mass within the right neck superior and lateral to the thyroid as seen in previous C T. Neoplasm cannot be excluded. Ultrasound guided fine needle aspiration can be performed if clinica lly indicated. Dictated by: Marlon Mane Blair Interpreted: Nataliia Gaines MD on 12/12/2016 at 16:22 Transcribed by: DEEP on 12/12/2016 at 16:25 Approved by: Nataliia Gaines M.D. on 12/12/2016 at 22:03
--- NOTE | 2016-12-12 16:29 | PCM.DIMED ---
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 Shah, and Dr. Mahmood within 1 week. Please drink at least 2 Liters of water daily. Please completely stop smoking. Follow-up plan Follow up with Dr. Valenzuela within 1-2 weeks. Follow-up Provider: Asa Shah MD Follow-up with PCP in: 1 week Provider: Thad Mahmood MD Follow-up in: 1 week Walter Rainey DO 12/13/16 1538: Discharge Instructions Attending's Statement Read and agree Ubaldo Triplett DO Dec 12, 2016 16:29 Walter Rainey DO Dec 13, 2016 15:38
[2016-12-12] MEDS ORDERED: METH5TAB5 PO (16:31)
[2016-12-12] MEDS ORDERED: METO-272 PO (16:31)
--- NOTE | 2016-12-12 17:26 | NUR ---
Discharge Reviewed discharge paper work and discharge instructions, understood discharge instructions. patient aware new prescription already been sent by discharging doctor to pharmacy. patient already scheduled for cancer care center appointments. IV therapy de accessed Port to left chest. Discontinued Tele. medical lab technician aware. patient received Xarelto as ordered before discharged. patient discharged approx 1720 accompanied by nursing staff. Denies pain or discomfort.
[2016-12-13 05:08] LABS: Hemoglobin A1C 6.2 % (4.8-5.6)
[2016-12-16] MEDS ORDERED: PEMBROLIZUMAB 200 MG IV SCH (09:00)
--- NOTE | 2016-12-16 16:47 | PCM.DC.MED ---
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 This does not seem to be toxic nodular goiter. Recommendations: - Check thyroid ultrasound to rule out nodular goiter (which would increase the probability of iodine-induced hyperthyroidism, Jod-Basedow phenomenon). In the absence of nodular thyroid disease I would discard this diagnosis. - Check thyroid stimulating immunoglobulin, as well as anti-TPO antibodies ( this will take several days to return) - Initiate antithyroid medication methimazole 10 mg twice a day which he should take for approximately 2-3 weeks, then likely reduce to 10 mg daily - Recommend to increase beta theo to fully effective dose. - I will schedule follow-up in Endocrinology clinic next . - We will need guidance from Dr. Bahena regarding the planned duration of his checkpoint inhibitor therapy. At present I would expect to continue methimazole throughout this time, could consider discontinuation several months after immunotherapy has stopped. Radioiodine may be considered if he does not return to euthyroidism after stopping pembrolizumab. Thank you for this interesting consult. Please contact me with any questions at [phone]. Procedures XRay, CTs & MRIs CT anterior chest pulmonary embolism December 10 2016 IMPRESSION: 1. No pulmonary embolus. 2. New left hilar and AP window adenopathy, indicating metastatic disease, causing mild extrinsic narrowing of the left main pulmonary artery. 3. No change in skeletal metastases. 4. No change in small hepatic hypodensities consistent with metastatic disease. 5. No change in right basilar rounded atelectasis. 6. Increased left apical pulmonary nodule, consistent with metastatic disease. Dictated by: Lakesha Jain M.D. on 12/10/2016 at 19:53 Chest x-ray 12/10/2014 IMPRESSION: 1. No change in right basilar nodular density. 2. No acute process. Dictated by: Lakesha Jain M.D. on 12/10/2016 at 18:09 Other Diagnostics IMPRESSION: 1. Bilateral colloid cysts otherwise normal thyroid. 2. Complex solid mass within the right neck superior and lateral to the thyroid as seen in previous CT. Neoplasm cannot be excluded. Ultrasound guided fine needle aspiration can be performed if clinically indicated. Brief History The patient reports that he was in reasonable baseline health until 3 days prior to admission. At that time his noticed a bit of exertional dyspnea. The patient felt well until the morning of admission. He awakened feeling weak and nearly unable to ambulate to the bathroom. He checked his fit bit heart rate monitor and noted a heart rate of 150. He has a prior history of atrial fibrillation and hence called his tube repairer and was referred to the emergency department. He had been otherwise eating and drinking normally. On admission he was noted to be in atrial fibrillation with rapid ventricular response, which is a recurrent problem for him. Thyroid function tests were sent and he was noted to be hyperthyroid. Systems he has had no recent sweats or heat intolerance. He has lost weight which she attributes to recently discontinuing high-dose glucocorticoid therapy , approximately 10-15 pounds in the past 2 months. He has no ocular symptoms. He he did not experience palpitation. Appetite has been normal. GI function normal. No abdominal pain or diarrhea or hyperdense defecation. No tremors. No sleep disturbance or neuropsychiatric symptoms. He has no personal history or family history of thyroid disease. 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 This is metastatic with mediastinal adenopathy. He received carboplatin and paclitaxel. Recently started Pembrolimumab in late 2016. He had a prior episode of atrial fibrillation related to pulmonary embolism in 2016, which seems to be part of his cancer. Hospital Course 66-year-old gentleman with history of atrial fibrillation/flutter following bilateral pulmonary embolisms, currently being treated with chemotherapy for metastatic squamous cell carcinoma, residual tumor burden, presented with weakness and tachycardia found to be experiencing recurrence of atrial fibrillation/flutter, without laminaria emboli, appropriately anticoagulated, and currently responsive to diltiazem drip. #1 atrial fibrillation with RVR, present on admission, resolved -Heart rate 160, responsive to diltiazem drip, treated with Xarelto, and metoprolol in the outpatient setting. -Possible causes for recurrence include dehydration, recent illness, or sequelae of metastatic disease -ContinueD with home Xarelto -Diltiazem gtt. for rate control discontinued -Cardiology consulted by admitting physician and patient decidedly not electrocardioversion candidate -Troponin negative, magnesium stable - restartED losartan and metoprolol #2 metastatic squamous cell carcinoma, present on admission, stable -Chest angiogram CT did not show any substantial change in metastatic disease from previous evaluation. -Dr. Bahena is aware of patient's ER visit, and notified of inpatient status. #3 chronic obesity, present on admission, stable -Patient's BMI is 31.1 -Nutrition consult while hospitalized #4 tobacco use disorder, present on admission, improving. -Nicotine patches when necessary while hospitalized. #5 obstructive sleep apnea, present on admission, stable - oxygen overnight #6 Hyperthyroidism Found incidentally on lab work. Dr. Mahmood, interactive multimedia designer, consulted and recommended Methimazole and follow up. Likely autoimmune or iatrogenic. Exam Vital Signs (Last) Date Time Temp Pulse Resp B/P Pulse Ox O2 Delivery O2 Flow Rate FiO2 12/12/16 16:34 Supplement Oxygen 12/12/16 14:35 36.8 71 19 115/72 94 12/10/16 19:00 2 Exam General: Well develop male in NAD HEENT: sclerae anicteric, oral mucosa moist, Neck: no JVD, soft tissue enlargement and induration on right side of neck; thyroid is nonpalpable Chest: clear to auscultation b/l Cardiac: RRR Abdomen: BS normal, non-tender Extremities: No edema; skin is dry and coarse, without diaphoresis Neuro: A&O, cranial nerves symmetric, mild slightly coarse tremor, reflexes normal not hyperreactive Test 12/10/16 18:00 12/10/16 19:37 12/11/16 03:10 12/12/16 02:50 Prothrombin Time 10.7sec (8.1-12.5) Prothromb Time International Ratio 1.00ratio Activated Partial Thromboplast Time 31.3sec (22.8-33.0) D-Dimer 0.5mg/L (<0.50) Hold [place] Top Tube Received (Received) Hold Urine Received (Received) Neutrophils (%) (Auto) 54.9% (40-74) Lymphocytes (%) (Auto) 28.9% (14-46) Monocytes (%) (Auto) 12.6% (4-12) Eosinophils (%) (Auto) 3.2% (0-5) Basophils (%) (Auto) 0.2% (0-3) White Blood Count 8.5th/mm3 (3.8-10.1) Red Blood Count 4.62mil/mm3 (4.40-5.80) Hemoglobin 13.1g/dL (13.8-17.2) Hematocrit 40.9% (41.0-50.0) Mean Corpuscular Volume 88.5fL (81-100) Mean Corpuscular Hemoglobin 28.4pg (27.0-35.0) Mean Corpuscular Hemoglobin Concent 32.0% (32.0-37.0) Red Cell Distribution Width 13.1% (12.3-15.4) Platelet Count 287bil/L (150-400) Sodium Level 140mEq/L (134-144) Potassium Level 3.9mEq/L (3.5-5.2) Chloride Level 102mEq/L (97-108) Carbon Dioxide Level 24mmol/L (18-29) Blood Urea Nitrogen 17mg/dL (8-27) Creatinine 0.64mg/dL (0.76-1.27) Estimat Glomerular Filtration Rate 133mL/min (>59) Glucose Level 139mg/dL (60-99) Hemoglobin A1c 6.2% (4.8-5.6) Calcium Level 9.5mg/dL (8.5-10.1) Ionized Calcium 1.30mmol/L (1.17-1.32) Phosphorus Level 4.4mg/dL (2.5-4.9) Magnesium Level 2.0mg/dL (1.6-2.6) Total Bilirubin 0.5mg/dL (0.0-1.2) Aspartate Amino Transf (AST/SGOT) 17U/L (0-50) Alanine Aminotransferase (ALT/SGPT) 18U/L (0-44) Alkaline Phosphatase 99U/L (25-160) Total Creatine Kinase 42U/L (21-232) Troponin T 0.010ug/L (0.0-0.011) Pro-B-Type Natriuretic Peptide 156pg/mL (0-376) Total Protein 6.8g/dL (6.4-8.4) Albumin 3.8g/dL (3.4-5.0) Thyroid Stimulating Hormone (TSH) < 0.005uIU/mL (0.450-4.500) Free Thyroxine 3.34ng/dL (0.82-1.77) Test 12/12/16 16:00 Thyroid Peroxidase Antibodies 8IU/mL (0-34) Discharge Medications Discharge Medications Gabapentin (Gabapentin) 300 Mg Capsule 300 MG PO TID (Reported) Losartan Potassium (Losartan Potassium) 25 Mg Tablet 12.5 MG PO HS (Reported) Methimazole (Methimazole) 5 Mg Tablet 10 MG PO BID Prescribed by: CELIA NANCE DO Metoprolol Succinate ER (Metoprolol Succinate ER) 50 Mg Tab.er.24h 100 MG PO DAILY Prescribed by: CELIA NANCE DO Pembrolizumab (Keytruda) 100 Mg/4 Ml (25 Mg/Ml) Vial 200 MG IV [id number] (Reported ) Rivaroxaban (Xarelto) 20 Mg Tablet 20 MG PO QPM (Reported) at 1800 Additional med instructions Please take your medications as instructed Followup Plan Disposition: Home Follow-up plan Follow up with Dr. Valenzuela within 1-2 weeks. Discharge Diet: Heart Healthy Discharge Activity: No restrictions Patient Instructions Please follow up with your PCP, Dr. Bahena, and Dr. Mahmood within 1 week. Please drink at least 2 Liters of water daily. Please completely stop smoking. Follow-up Provider: Asa Bahena MD Follow-up with PCP in: 1 week Provider: Thad Mahmood MD Follow-up in: 1 week Time spent 35 minutes Attending Statement I have seen and evaluated patient at bedside in addition to directly supervising care provided by resident physician. I agree with above documentation. copies to: Asa Bahena MD; Thad Mahmood MD, Hong D DO Dec 16, 2016 16:47 Walter Rainey DO Dec 20, 2016 07:57
[2016-12-18 12:16] LABS: Thyroid Stim Immunoglobulin 29 % (0-139)
== END 2016-12-12 17:21 | disposition home or self-care (01) | DRG 309 ==
LOC: SED 17:38 → PCC 20:13 → MPC 12-12 02:27
PROVIDERS: ADMIT Hospitalist; ATTEND Hospitalist
DX: I48.0 Paroxysmal atrial fibrillation (principal); C78.00 Secondary malignant neoplasm of unspecified lung; C79.51 Secondary malignant neoplasm of bone; C80.1 Malignant (primary) neoplasm, unspecified; Z86.711 Personal history of pulmonary embolism; Z86.718 Personal history of other venous thrombosis and embolism; Z77.098 Contact with and (suspected) exposure to other hazardous, chiefly nonmedicinal, chemicals; Z92.21 Personal history of antineoplastic chemotherapy; E66.09 Other obesity due to excess calories; Z68.31 Body mass index [BMI] 31.0-31.9, adult; F17.210 Nicotine dependence, cigarettes, uncomplicated; G47.33 Obstructive sleep apnea (adult) (pediatric); E06.3 Autoimmune thyroiditis